=== PATIENT | male | born 1965 | race Caucasian/White ===

== ENCOUNTER 2018-10-29 16:25 | Outpatient (CLI) | payer BC ==
[2018-10-29 16:47] LABS: HGB - HEMOGLOBIN 9.4 g/dL (14.0-18.0); MEAN CORPUSCULAR HGB CONC 33.6 g/dL (32.0-36.0); MEAN CORPUSCULAR VOLUME 86.3 fL (80.0-94.0); MEAN PLATELET VOLUME 6.4 fL (7.4-11.4); RED BLOOD COUNT 3.24 10^6/uL (4.70-6.10); RED CELL DISTRIBUTION WIDTH 15.3 % (12.0-15.0)
[2018-10-29 17:21] LABS: CALCIUM 7.8 mg/dL (8.5-10.3); CREATININE 7.9 mg/dL (0.6-1.2)
[2018-10-30 11:57] LABS: HEPATITIS B SURFACE ANTIGEN NON-REACTIVE (NON-REACTIVE)
[2018-10-30 12:52] LABS: HEPATITIS B CORE AB TOTAL NON-REACTIVE (NON-REACTIVE); HEPATITIS C ANTIBODY NON-REACTIVE (NON-REACTIVE)
[2018-10-31 19:21] LABS: ALBUMIN 2.6 g/dL (3.8-4.8); ALPHA 1 GLOBULIN 0.3 g/dL (0.2-0.3); ALPHA 2 GLOBULIN 0.8 g/dL (0.5-0.9); BETA 1 GLOBULIN 0.4 g/dL (0.4-0.6); BETA 2 GLOBULIN 0.3 g/dL (0.2-0.5); GAMMA GLOBULIN 0.4 g/dL (0.8-1.7)
[2018-11-01 00:52] LABS: GLOM BASEMENT MEMBRANE AB IGG <1.0 AI (<1.0)
[2018-11-02 04:24] LABS: ANCA SCREEN NEGATIVE (NEGATIVE)
== END 2018-10-29 16:26 | disposition home or self-care (01) ==
LOC: LAB 16:25
PROVIDERS: ATTEND Internal Medicine Nephrology
DX: M31.30 Wegener's granulomatosis without renal involvement (principal); N05.9 Unspecified nephritic syndrome with unspecified morphologic changes; D70.9 Neutropenia, unspecified; D63.1 Anemia in chronic kidney disease; D47.2 Monoclonal gammopathy; B19.10 Unspecified viral hepatitis B without hepatic coma; B17.10 Acute hepatitis C without hepatic coma
CPT/HCPCS: 36415; 80048; 81599; 83520; 84155; 84165; 85027; 86021; 86317; 86704; 86803; 87340

== ENCOUNTER 2018-10-29 21:58 | Outpatient (CLI) | payer BC ==
--- NOTE | 2018-10-29 23:32 | Ultrasound Report ---
Reason: ACUTE KIDNEY FAILURE Procedure Date: 10/29/2018 Accession Number: [id number] / [id number] Procedure: US - Retroperitoneal CPT Code: FULL RESULT: EXAM: RENAL ULTRASOUND EXAM DATE: 10/29/2018 11:15 PM. CLINICAL HISTORY: ACUTE KIDNEY FAILURE. COMPARISON: None. TECHNIQUE: Real-time scanning was performed with static images obtained. FINDINGS: Right Kidney: 11.2 x 5.6 x 5.5 cm. Normal echotexture with no stones, contour-deforming masses, or hydronephrosis. Left Kidney: 11.7 x 5.2 x 4.9 cm. 8 mm cortical cyst. No hydronephrosis, shadowing calculus, or solid mass. Bladder: Bilateral jets seen. The prevoid bladder volume was 315 cc. The postvoid bladder volume was 13 cc. Other: None. IMPRESSION: No hydronephrosis. Incidental left cortical cyst. RADIA
== END 2018-10-29 21:59 | disposition home or self-care (01) ==
LOC: DI 21:58
PROVIDERS: ATTEND Internal Medicine Nephrology
DX: N17.9 Acute kidney failure, unspecified (principal); M31.30 Wegener's granulomatosis without renal involvement; N05.9 Unspecified nephritic syndrome with unspecified morphologic changes; D70.9 Neutropenia, unspecified; D63.1 Anemia in chronic kidney disease; D47.2 Monoclonal gammopathy; B19.10 Unspecified viral hepatitis B without hepatic coma; B17.10 Acute hepatitis C without hepatic coma
CPT/HCPCS: 36415; 76770; 80048; 81599; 83520; 84155; 84165; 85027; 86021; 86317; 86704; 86803; 87340

== ENCOUNTER 2018-11-21 13:21 | Outpatient (CLI) | payer BC ==
--- NOTE | 2018-11-23 12:01 | XRAY Report ---
Reason: DYSPNEA Procedure Date: 11/21/2018 Accession Number: [id number] / [id number] Procedure: XR - Chest 2 View X-Ray CPT Code: 37027 FULL RESULT: EXAM: CHEST RADIOGRAPHY EXAM DATE: 11/21/2018 01:38 PM. CLINICAL HISTORY: DYSPNEA. Shortness of breath. History of kidney failure. COMPARISON: XR CHEST PA AND LAT 12/19/2006 1:32 PM. TECHNIQUE: 2 views. FINDINGS: Lungs/Pleura: Elongated right middle lobe opacity appears similar to prior chest x-ray, compatible with scarring. No pneumothorax or pleural effusion. No radiographic evidence for pulmonary vascular congestion. Mediastinum: Heart and mediastinal contours are unremarkable. Other: None. IMPRESSION: 1. Right middle lobe scarring appears similar to remote chest x-ray. 2. No acute airspace disease. RADIA
[2018-11-23 14:06] LABS: HEPATITIS B CORE AB TOTAL NON-REACTIVE (NON-REACTIVE); HEPATITIS B SURFACE ANTIGEN NON-REACTIVE (NON-REACTIVE)
[2018-11-24 23:57] LABS: HEPATITIS C VIRAL RNA GENOTYPE NOT DETECTED
== END 2018-11-21 13:22 | disposition home or self-care (01) ==
LOC: DI 13:21
PROVIDERS: ATTEND Internal Medicine Nephrology
DX: R06.00 Dyspnea, unspecified (principal); B19.10 Unspecified viral hepatitis B without hepatic coma; B17.10 Acute hepatitis C without hepatic coma
CPT/HCPCS: 36415; 71046; 86317; 86704; 87340; 87902

== ENCOUNTER 2019-01-09 08:03 | Outpatient (CLI) | payer BC ==
--- NOTE | 2019-01-09 10:02 | Ultrasound Report ---
Reason: PERIPHERAL ARTERY DISEASE Procedure Date: 01/09/2019 Accession Number: [id number] / [id number] Procedure: US - Aorta Screening CPT Code: FULL RESULT: EXAM: AORTIC DOPPLER ULTRASOUND EXAM DATE: 01/09/2019 08:09 AM. CLINICAL HISTORY: Peripheral artery disease. COMPARISON: None. TECHNIQUE: Real-time sonographic imaging of retroperitoneal vascular structures, including color-flow, Doppler flow and spectral analysis was performed by the electronic warfare specialist. Multiple guest services representative static images were saved for review. FINDINGS: Aorta: The aorta has an irregular contour consistent with diffuse moderate atherosclerotic disease. No aneurysm or significant focal stenosis identified. Proximal: 2.2 cm. Admitted: 2.7 cm. Distal: 2.3 cm. Iliac Vessels: The visualized proximal common iliac arteries are normal in caliber measuring up to 1.1 cm on the right and 1.0 cm on the left. Other: None. IMPRESSION: 1. No abdominal aortic or iliac artery aneurysm. 2. Moderate atherosclerotic disease. RADIA
--- NOTE | 2019-01-11 09:06 | Ultrasound Report ---
Reason: DISORDER OF ARTERIES AND ARTERIOLES, UNSPECIFIED Procedure Date: 01/09/2019 Accession Number: [id number] / [id number] Procedure: US - Duplex Lwr Ext Arterial Bilat CPT Code: FULL RESULT: EXAM: BILATERAL LOWER EXTREMITY ARTERIAL DOPPLER ULTRASOUND EXAM DATE: 01/09/2019 09:18 AM. CLINICAL HISTORY: Disorder of arteries and arterioles, unspecified. COMPARISON: None. TECHNIQUE: Real-time sonographic vascular imaging was performed by the interchange agent, utilizing color-flow, Doppler flow, and spectral analysis. Multiple mill representative static images were saved for review. FINDINGS: Bilateral lower extremity duplex interrogation is performed with patency throughout both lower extremities by color Doppler and brisk arterial systolic upstrokes throughout both lower extremities. The exception is the left anterior tibial artery which could not be identified. Right Lower Extremity: MANAGER LAB: PSV 97.2 cm/sec. PSFA: PSV 129.8 cm/sec. MSFA: PSV 120.4 cm/sec. DSFA: PSV 116.7 cm/sec. PFA: PSV 85 cm/sec. POP: PSV 105.8 cm/sec. BLAIR: PSV 83.5 cm/sec. INJECTION MOLDING SUPERVISOR: PSV 96.9 cm/sec. AILYN: PSV 68.2 cm/sec. DPA: PSV 112.2 cm/sec. Left Lower Extremity: MANAGER LAB: PSV 101 cm/sec. PSFA: PSV 132.7 cm/sec. MSFA: PSV 123.5 cm/sec. DSFA: PSV 106 cm/sec. PFA: PSV 88.2 cm/sec. POP: PSV 117.7 cm/sec. BLAIR: Not seen. INJECTION MOLDING SUPERVISOR: PSV 93.6 cm/sec. AILYN: PSV 34.4 cm/sec. DPA: PSV 56.6 cm/sec. IMPRESSION: Nonvisualization of the left anterior tibial artery with otherwise preserved arterial waveforms in good flow to both ankles and dorsalis pedis arteries. RADIA
== END 2019-01-09 08:04 | disposition home or self-care (01) ==
LOC: DI 08:03
PROVIDERS: ATTEND Internal Medicine Nephrology
DX: I73.9 Peripheral vascular disease, unspecified (principal); I70.0 Atherosclerosis of aorta
CPT/HCPCS: 76706; 93925

== ENCOUNTER 2019-03-24 07:50 | Outpatient (CLI) | payer BC | END 2019-03-24 07:51 | disposition home or self-care (01) | LOC: DI 07:50 | PROVIDERS: ATTEND Internal Medicine Cardiovascular Disease | DX: R01.1 Cardiac murmur, unspecified (principal); I27.20 Pulmonary hypertension, unspecified | CPT/HCPCS: 93306 ==

== ENCOUNTER 2019-04-27 07:12 | Outpatient (CLI) | payer BC ==
--- NOTE | 2019-04-27 07:40 | XRAY Report ---
Reason: SHORTNESS OF BREATH Procedure Date: 04/27/2019 Accession Number: [id number] / [id number] Procedure: XR - Chest 2 View X-Ray CPT Code: 20495 FULL RESULT: EXAM: CHEST RADIOGRAPHY EXAM DATE: 04/27/2019 07:30 AM. CLINICAL HISTORY: SHORTNESS OF BREATH. COMPARISON: CHEST 2 VIEW 11/21/2018 1:34 PM. TECHNIQUE: 2 views. FINDINGS: Lungs/Pleura: No focal opacities evident. No pleural effusion. No pneumothorax. Normal volumes. Mediastinum: Heart size upper normal. Aorta is mildly tortuous. Other: Degenerative changes of the thoracic spine. IMPRESSION: 1. No acute disease in the chest. RADIA
--- NOTE | 2019-04-27 21:47 | CT Report ---
Reason: END STAGE RENAL DISEASE,SHORTNESS OF BREATH,CAROTI Procedure Date: 04/27/2019 Accession Number: [id number] / [id number] Procedure: CT - Abdomen/Pelvis WO CPT Code: FULL RESULT: EXAM: CT ABDOMEN AND PELVIS EXAM DATE: 04/27/2019 07:35 AM. CLINICAL HISTORY: End stage renal disease, shortness of breath. COMPARISONS: 01/09/2019. TECHNIQUE: Routine helical CT imaging was performed through the abdomen and pelvis. IV contrast: None. Enteric contrast: No. Reconstructions: Coronal and sagittal. In accordance with CT protocol optimization, one or more of the following dose reduction techniques were utilized for this exam: automated exposure control, adjustment of mA and/or KV based on patient size, or use of iterative reconstructive technique. FINDINGS: Lung Bases: Lung bases are clear. Heart size upper normal. Trace pericardial effusion. Small hiatal hernia. Right middle lobe and lingular scar/atelectasis. Liver: Unenhanced images of the liver are unremarkable. Gallbladder/Bile Ducts: Unremarkable. Spleen: Normal. Pancreas: Normal. Adrenal Glands: Normal. Kidneys: Mild bilateral perinephric stranding. No nephrolithiasis. No hydronephrosis. Exophytic indeterminate lesion is seen arising from the left kidney measuring 9 mm. No ureteral dilatation or ureteral calculi. Peritoneal Cavity/Bowel: Stomach is nondistended. No small bowel obstruction. Amorphous appearance of the proximal jejunum of uncertain significance. No adjacent edema. Small volume of stool in the colon. No diverticulitis. No enlarged retroperitoneal or mesenteric lymph nodes. The appendix is well visualized and normal. Pelvic Organs: No bladder calculi. Urinary bladder is nondistended and unremarkable on these unenhanced images. Prostate gland and seminal vesicles are unremarkable. No pelvic free fluid. No pelvic adenopathy. Vasculature: Vascular calcifications. No abdominal aortic aneurysm. Calcification is seen in the splenic hilum may represent a calcified splenic artery aneurysm measuring approximately 7 mm. Bones: Degenerative changes of the lower thoracic and lumbar spine. Lumbar facet arthropathy. Degenerative changes of both hip joints. Other: None. IMPRESSION: 1. 9 mm indeterminate exophytic left renal lesion. No nephrolithiasis. No hydronephrosis. 2. Normal appendix. No bowel obstruction but no diverticulitis. 3. No abdominal or pelvic adenopathy. RAD[facility]
--- NOTE | 2019-04-27 22:19 | Ultrasound Report ---
Reason: END STAGE RENAL DISEASE Procedure Date: 04/27/2019 Accession Number: [id number] / [id number] Procedure: US - Abdomen Complete CPT Code: FULL RESULT: EXAM: ABDOMEN ULTRASOUND EXAM DATE: 04/27/2019 08:20 AM. CLINICAL HISTORY: End stage renal disease. COMPARISON: ABDOMEN/PELVIS W/O 04/27/2019 7:29 AM AORTA SCREENING 01/09/2019 8:09 AM. TECHNIQUE: Real-time scanning was performed with static images obtained. FINDINGS: Liver: Mildly echogenic hepatic parenchyma. No hepatic lesions. No intrahepatic ductal dilatation. The liver is not enlarged, 16.8 cm. Main portal vein flow: Hepatopetal. Gallbladder: Normal. No stones, wall thickening, or sonographic Conroy's sign. Biliary System: Common bile duct measures 3-4 mm. No intrahepatic or extrahepatic ductal dilatation. Pancreas: Visualized portion is unremarkable. Kidneys: Right: 12.2 cm longitudinally. Normal. No contour-deforming mass, stones, or hydronephrosis. Left: 13 cm longitudinally. Normal echotexture. No hydronephrosis. Exophytic 0.9 x 0.7 x 0.6 cm cyst is seen arising from the left kidney. Spleen: 11.3 cm. Normal in size and echotexture. Aorta and Inferior Vena Cava: Abdominal aorta and IVC are normal in caliber. No evidence of aneurysm. Other: No ascites. IMPRESSION: 1. Mildly echogenic hepatic parenchyma, findings typically seen with fatty replacement. No hepatic lesions. 2. Normal gallbladder. No biliary ductal dilatation. 3. Left renal 0.9 cm cyst. RADIA
--- NOTE | 2019-04-27 22:20 | Ultrasound Report ---
Reason: CAROTID ARTERY STENOSIS Procedure Date: 04/27/2019 Accession Number: [id number] / [id number] Procedure: US - Carotid Doppler Complete CPT Code: FULL RESULT: EXAM: BILATERAL CAROTID AND VERTEBRAL ARTERY DUPLEX DOPPLER ULTRASOUND: EXAM DATE: 04/27/2019 09:21 AM CLINICAL HISTORY: Carotid artery stenosis. Endstage renal disease. COMPARISON: None. TECHNIQUE: Grayscale imaging, color Doppler, and duplex spectral Doppler were used to evaluate the carotid and vertebral arteries bilaterally. Static images were obtained. FINDINGS: There is calcified and noncalcified plaque in the common and internal and external carotid arteries bilaterally, left greater than right. Normal antegrade flow is present in bilateral vertebral arteries. VELOCITIES (cm/sec): Right: Proximal CCA: PSV 96.3 cm/sec, EDV 18.2 cm/sec. Mid CCA: PSV 75.2 cm/sec, EDV 25.6 cm/sec. Distal CCA: PSV 64.4 cm/sec, EDV 20.5 cm/sec. Proximal ECA: PSV 89.2 cm/sec, EDV 15.0 cm/sec. Proximal ICA: PSV 82.5 cm/sec, EDV 28.3 cm/sec. Mid ICA: PSV 46.7 cm/sec, EDV 19.1 cm/sec. Vertebral Artery: PSV 66.2 cm/sec, EDV 30.0 cm/sec. Right ICA/CCA Ratio: 0.5 Left: Proximal CCA: PSV 93.1 cm/sec, EDV 21.5 cm/sec. Mid CCA: PSV 83.7 cm/sec, EDV 19.9 cm/sec. Distal CCA: PSV 74.2 cm/sec, EDV 22.1 cm/sec. Proximal ECA: PSV 154.9 cm/sec, EDV 15.9 cm/sec. Proximal ICA: PSV 116.6 cm/sec, EDV 33.7 cm/sec. Mid ICA: PSV 88.6 cm/sec, EDV 30.4 cm/sec. Vertebral Artery: PSV 34.6 cm/sec, EDV 7.2 cm/sec. Carotid Bulb: PSV 156 cm/sec, EDV 45 cm/sec. Left ICA/CCA Ratio: 1.0 ICA diameter stenosis: Right: <50% by velocity and <70% by NASCET criteria. Left: <50% by velocity and <70% by NASCET criteria. IMPRESSION: 1. Left greater than right bilateral carotid artery plaquing. 2. In the right carotid artery there are no elevated carotid artery velocities to suggest hemodynamically significant stenosis. 3. Left carotid artery bulb 50-69% stenosis. 4. Normal antegrade flow is present in bilateral vertebral arteries. General Recommendations: Stenosis =50% ICA - Follow-up ultrasound 6-12 months Stenosis <50% ICA - High Risk Patient with plaque - Follow-up ultrasound 1-2 years Normal Study but High Risk Patient - Follow-up ultrasound 3-5 years Management recommendations and diagnostic criteria are based on current IAC endorsed standards in Carotid Artery Stenosis: Grayscale and Doppler Ultrasound Diagnosis. Validated velocity measurements with angiographic measurements and velocity criteria are extrapolated from diameter data as defined by the Society of Radiologists in Ultrasound Consensus Conference Radiology 2003; 229;340-346. RADIA
== END 2019-04-27 07:13 | disposition home or self-care (01) ==
LOC: DI 07:12
PROVIDERS: ATTEND Internal Medicine Nephrology
DX: N18.6 End stage renal disease (principal); R06.02 Shortness of breath; I65.22 Occlusion and stenosis of left carotid artery; N28.1 Cyst of kidney, acquired; Z87.448 Personal history of other diseases of urinary system
CPT/HCPCS: 71046; 74176; 76700; 93880

== ENCOUNTER 2019-10-15 10:04 | Outpatient (CLI) | payer BC, MEDICARE ==
--- NOTE | 2019-10-16 09:16 | XRAY Report ---
Reason: COUGH Procedure Date: 10/15/2019 Accession Number: [id number] / [id number] Procedure: XR - Chest 2 View X-Ray CPT Code: 09540 Final Report FULL RESULT: EXAM: CHEST RADIOGRAPHY EXAM DATE: 10/15/2019 10:29 AM HISTORY: COUGH COMPARISON: CHEST 2 VIEW 04/27/2019 7:21 AM TECHNIQUE: Two Views FINDINGS: Lungs/Pleura: There is some question of mild reticular nodular prominence of mid to lower lung markings. Correlate for interstitial lung disease and consider high-resolution chest CT to better assess. No focal consolidation. No brijesh edema or pleural effusion. Cardiomediastinal silhouette: Unremarkable accounting for technique. Other: None. IMPRESSION: Artifact versus mild reticular nodular interstitial prominence. Consider chest CT follow-up to better assess if clinically warranted. Otherwise unremarkable. RADIA
== END 2019-10-15 10:05 | disposition home or self-care (01) ==
LOC: DI 10:04
PROVIDERS: ATTEND Internal Medicine Nephrology
DX: R05 Cough (principal)
CPT/HCPCS: 71046

== ENCOUNTER 2020-03-29 13:00 | Outpatient (CLI) | payer MEDICARE, BC | END 2020-03-29 13:01 | disposition home or self-care (01) | LOC: DI 13:00 | PROVIDERS: ATTEND Internal Medicine Nephrology | DX: I27.20 Pulmonary hypertension, unspecified (principal); I51.7 Cardiomegaly | CPT/HCPCS: 93306 ==

== ENCOUNTER 2020-09-07 19:36 | Outpatient (CLI) | payer BC, MEDICARE | END 2020-09-07 19:37 | disposition home or self-care (01) | LOC: COV 19:36 | PROVIDERS: ATTEND Family Medicine | DX: R05 Cough (principal); R07.0 Pain in throat; R09.81 Nasal congestion; J34.89 Other specified disorders of nose and nasal sinuses; Z20.828 Contact with and (suspected) exposure to other viral communicable diseases ==

== ENCOUNTER → 2022-03-08 | Outpatient (CLI) | payer MEDICARE, BC | END | disposition short-term general hospital (02) | LOC: EMS 10:55 | DX: R07.9 Chest pain, unspecified (principal); R11.0 Nausea; R53.1 Weakness | CPT/HCPCS: A0425; A0427 ==

== ENCOUNTER 2022-08-30 17:12 | Outpatient (CLI) | payer MEDICARE, BC | END 2022-08-30 23:59 | disposition short-term general hospital (02) | LOC: EMS 17:12 | DX: R41.82 Altered mental status, unspecified (principal); R50.9 Fever, unspecified; R53.83 Other fatigue; E16.2 Hypoglycemia, unspecified; Z99.2 Dependence on renal dialysis | CPT/HCPCS: A0425; A0427 ==